=== PATIENT | male | born 1980 | race Caucasian/White ===

== ENCOUNTER 2016-11-20 15:15 | Emergency (ER) | payer BC ==
[~2016-11-20] VITALS: Ht 188 cm; Wt 74.8 kg
[~2016-11-20 15:15] MED LIST: ACHD5005 PO; AMOX500C2 PO; CLIN-81 PO; HYDR-757 PO; TRAM50TA2 PO
--- NOTE | 2016-11-20 16:26 | Diagnostic Imaging Report ---
INDICATION: Left wrist injury with pain after fall four days ago. DISCUSSION: Three views of the left wrist were obtained, no comparison. No acute fracture, dislocation, or other osseous abnormality identified. No significant degenerative disease. Alignment is anatomic. Soft tissues are unremarkable. IMPRESSION: 1. Negative left wrist. Dictated by: Dictated on workstation # [id number]
--- NOTE | 2016-11-20 16:32 | ED Upper Extremity ---
General Chief Complaint: Upper Extremity Stated Complaint: L WRIST INJ Nursing Triage Note: PT CO OF L WRIST PAIN Nursing Sepsis Screen: No Definite Risk History of Present Illness Time seen by provider: 15:10 Initial Comments Evaluation for left wrist pain. The patient reports on 11/17/16 he was hiking when he lost his footing, he fell backward on an outstretched left arm and extended wrist. He had some pain in the left wrist but he was able to continue with normal activities and minimal restrictions. He is right-hand dominant Onset: other (3 days ago) Severity: mild Pain/Injury Location: left wrist Method of Injury: fell Modifying Factors: Improves With Rest Associated Symptoms: he has been alternating between Tylenol and ibuprofen and feels this pain i Allergies and Home Medications Allergies Coded Allergies: NKANo Known Allergies (Unverified Allergy, Mild, 09/18/08) Constitutional: no symptoms reported, see HPI EENTM: no symptoms reported, see HPI Respiratory: no symptoms reported, see HPI Cardiovascular: no symptoms reported, see HPI Gastrointestinal: no symptoms reported, see HPI Genitourinary: no symptoms reported, see HPI Musculoskeletal: see HPI, joint pain (left wrist and forearm), joint swelling Skin: no symptoms reported, see HPI Psychiatric/Neurological: No Symptoms Reported, See HPI All Other Systems Reviewed Negative Unless Noted: Yes Past Axrmegw-Gbsvax-Raqihm Hx Patient Social History Alcohol Use: Regular Use Recreational Drug Use: No Smoking Status: Current Everyday Smoker Type Used: Cigarettes Recent Foreign Travel: No Contact w/Someone Who Travel: No Recent Infectious Disease Expo: No Immunizations Up To Date Tetanus Booster (TDap): More than 5yrs Surgeries HX Surgeries: No Respiratory Hx Respiratory Disorders: No Cardiovascular Hx Cardiac Disorders: No Neurological Hx Neurological Disorders: No Reproductive System Hx Reproductive Disorders: No Genitourinary Hx Genitourinary Disorders: No Gastrointestinal Hx Gastrointestinal Disorders: No Musculoskeletal Hx Musculoskeletal Disorders: No Endocrine Hx Endocrine Disorders: No HEENT HX ENT Disorders: No Cancer Hx Cancer: No Psychosocial Hx Psychiatric Problems: No Integumentary HX Skin/Integumentary Disorder: No Blood Transfusions Hx Blood Disorders: No Adverse Reaction to a Blood Tr: No Reviewed Nursing Assessment Reviewed/Agree w Nursing PMH: Yes Family Medical History Family Medial History: Patient reports no known family medical history. Physical Exam Vital Signs Vital Sign - Last 12Hours 11/20/16 15:55 Temp 97.4 Pulse 82 Resp 18 B/P (MAP) 163/96 Pulse Ox 97 Capillary Refill : Less Than 3 Seconds General Appearance: WD/WN, no apparent distress Cardiovascular: normal peripheral pulses, regular rate, rhythm, no murmur Respiratory: chest non-tender, lungs clear, normal breath sounds, no respiratory distress Wrist: Yes bone tenderness (left radius and ulna distally), Yes limited ROM ( left wrist secondary to pain), Yes soft tissue tenderness, Yes swelling Hand: normal inspection, non-tender, no evidence of injury, normal ROM, Left Neurologic/Psychiatric: no motor/sensory deficits, alert, normal mood/affect, oriented x 3 Skin: normal color, warm/dry Progress/Results/Core Measures Results/Orders My Orders Orders - MELINDA ZULUAGA Wrist, Left, 3 Views Or More (11/20/16 15:19) Vital Signs/I&O Vital Sign - Last 12Hours 11/20/16 11/20/16 15:55 16:38 Temp 97.4 Pulse 82 82 Resp 18 18 B/P (MAP) 163/96 Pulse Ox 97 97 Blood Pressure Mean: 118 Progress Note : Time: 15:10 Progress Note initial evaluation completed, discussed plan to x-ray the left wrist and reevaluate after that 1530 x-ray negative for fracture, dislocation, acute injury. 3 inch Felipe wrap and wrist splint applied. Diagnostic Imaging Diagonstic Imaging: Xray Plain Films/CT/US/NM/MRI: other (left wrist) Comments NAME: PAIGE MURPHY [facility] REC#: [id number] PT STATUS: REG ER : 1980 PHYSICIAN: MELINDA ZULUAGA ADMIT DATE: 11/20/16/ER Draft Date of Exam:11/20/16 WRIST, LEFT, 3 VIEWS OR MORE INDICATION: Left wrist injury with pain after fall four days ago. DISCUSSION: Three views of the left wrist were obtained, no comparison. No acute fracture, dislocation, or other osseous abnormality identified. No significant degenerative disease. Alignment is anatomic. Soft tissues are unremarkable. IMPRESSION: 1. Negative left wrist. Dictated on workstation # [id number] Dict: 11/20/16 1619 Trans: 11/20/16 1624 [facility] [phone] Interpreted by: NAOMY CHAUDHARI MD Electronically signed by Reviewed: Reviewed by Me Departure Impression Impression: Primary Impression: Left wrist sprain Qualified Codes: S63.502A - Unspecified sprain of left wrist, initial encounter Disposition: HOME, SELF-CARE Condition: Improved Departure-Patient Inst. Decision time for Depature: 15:30 Referrals: NO,LOCAL PHYSICIAN (PCP/Family) Primary Care Physician Patient Instructions: Wrist Sprain (DC) Add. Discharge Instructions: Wear wrist splint at all times for 2-3 days, then wear as needed for activities. Ice to left wrist 20 minutes every 2 hours. Continue to alternate between Tylenol 650 mg and ibuprofen 600 mg every 4 hours. Follow[facility] at [facility] if continued symptoms in 1-2 weeks. Return to emergency department if left wrist pain increases, new injury, or new problems. All discharge instructions reviewed with patient and/or family. Voiced understanding. MELINDA ZULUAGA Nov 20, 2016 16:32
[2016-11-20 16:38] VITALS: BP 142/88
== END 2016-11-20 16:38 | disposition home or self-care (01) ==
LOC: EDUNIT# 15:15 → ER 15:16
DX: S63.502A Unspecified sprain of left wrist, initial encounter (principal); F17.210 Nicotine dependence, cigarettes, uncomplicated; W17.89XA Other fall from one level to another, initial encounter; Y93.01 Activity, walking, marching and hiking
CPT/HCPCS: 73110; 99282

== ENCOUNTER 2020-01-06 22:29 | Emergency (ER) | payer BC ==
[~2020-01-06] VITALS: Ht 190.5 cm; Wt 74.8 kg
[~2020-01-06 22:29] MED LIST changes: +HYDR-4226 PO; -HYDR-757 PO
[2020-01-07] MEDS ORDERED: ORPHENADRINE 60 MG/2 ML (NORFLEX) AMP (ED ONLY) IM ONE (00:30)
[2020-01-07] MEDS ORDERED: morphine INJ 10 MG/ML 1ML (SYR OR VIAL) IM STA (00:30)
--- NOTE | 2020-01-07 01:24 | ED Fall/Injury ---
General Chief Complaint: Trauma-Non Activation Stated Complaint: LEFT FOOT INJURY Nursing Triage Note: TO ED VIA POV AND USE OF OWN CRUTCHES THEN REQUESTED W/C TO ROOM 6. 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 C/O LEFT HEEL PAIN. DENIES HITTING BACK, TAILBONE, HEAD. Source: patient Exam Limitations: no limitations History of Present Illness Date Seen by Provider: Jan 06, 2020 Time Seen by Provider: 22:58 Initial Comments This 39-year-old gentleman presents to the emergency room with complaints of pain in the left foot and ankle after falling off a shed roof. He was working on the roof when he slipped and slid down it. He landed on his feet but had sudden pain in the left foot and ankle. He denies any other injury. He has no back pain. He has some cramping in his left thigh. Allergies and Home Medications Allergies Coded Allergies: NKANo Known Allergies (Unverified Allergy, Mild, 09/18/08) Home Medications Cyclobenzaprine HCl 10 Mg Tablet, 10 MG PO Q8H PRN for SPASMS Prescribed by: SOFY LEWIS on 01/07/20 0150 Oxycodone HCl/Acetaminophen 1 Each Tablet, 1 TAB PO Q4H PRN for PAIN-MODERATE (5-7) Prescribed by: SOFY LEWIS on 01/07/20 0150 Patient Home Medication List Home Medication List Reviewed: Yes Review of Systems Review of Systems Constitutional: no symptoms reported Eyes: No Symptoms Reported Ears, Nose, Mouth, Throat: no symptoms reported Respiratory: no symptoms reported Cardiovascular: no symptoms reported Gastrointestinal: no symptoms reported Genitourinary: no symptoms reported Musculoskeletal: see HPI Skin: no symptoms reported Psychiatric/Neurological: No Symptoms Reported Past Tqcxuoi-Kmhmas-Pldtrs Hx Past Med/Social Hx: Reviewed Nursing Past Med/Soc Hx Patient Social History Alcohol Use: Rarely Uses Number of Drinks Today: 6 Alcohol Beverage of Choice: Beer Recreational Drug Use: Yes Drug of Choice: MARIJUANA Smoking Status: Current Everyday Smoker Type Used: Cigarettes Recent Foreign Travel: No Contact w/Someone Who Travel: No Recent Infectious Disease Expo: No Recent Hopitalizations: No Physical Abuse: No Sexual Abuse: No Mistreated: No Fear: No Immunizations Up To Date Tetanus Booster (TDap): More than 5yrs Seasonal Allergies Seasonal Allergies: No Past Medical History Surgeries: No Respiratory: No Cardiac: No Neurological: No Reproductive Disorders: No Gastrointestinal: No Musculoskeletal: No Endocrine: No Cancer: No Psychosocial: No Integumentary: No Blood Disorders: No Adverse Reaction/Blood Tranf: No Family Medical History Patient reports no known family medical history. Physical Exam Vital Signs Vital Signs - First Documented 01/06/20 22:42 Temp 36.1 Pulse 117 Resp 16 B/P (MAP) 156/95 (115) Pulse Ox 99 O2 Delivery Room Air Capillary Refill : Less Than 3 Seconds Height, Weight, BMI Height: 6'2.00" Weight: 165lbs. oz. 74.970841oh; 20.00 BMI Method:Stated General Appearance: WD/WN, mild distress HEENT: PERRL/EOMI, normal ENT inspection Neck: normal inspection Cardiovascular: regular rate, rhythm, no edema, no murmur Respiratory: lungs clear, normal breath sounds, no respiratory distress Gastrointestinal: non tender, soft Extremities: other (swelling and tenderness about the left ankle and heel. Distal exam unremarkable with normal sensation and capillary refill in the toes. 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 as tested, no motor/sensory deficits, alert, normal mood/affect, oriented x 3 Skin: normal color, warm/dry Nestor Coma Score Best Eye Response: (4) Open Spontaneously Best Verbal Response: (5) Oriented Best Motor Response: (6) Obeys Commands [place] Total: 15 Progress/Results/Core Measures Results/Orders My Orders Orders - SOFY JONES MD Foot, Left, 3 Views (01/06/20 23:06) Ankle, Left, 3 Views (01/06/20 23:06) Ct Extremity Lower Left Wo (01/06/20 23:38) Morphine Injection (Morphine Injection (01/07/20 00:30) Orphenadrine Inj (Ed Only) (Norflex Inje (01/07/20 00:30) Femur, Left, 2 Views (01/07/20 00:39) Tibia/Fibula, Left, 2 Views (01/07/20 00:39) Steplite (01/07/20 00:41) Rx-Oxycodone/Apap 5-325 Mg (Rx-Percocet (01/07/20 01:30) Medications Given in ED Current Medications Medications Dose Ordered Sig/Harshil Route Start Time Stop Time Status Last Admin Dose Admin Orphenadrine Citrate 60 mg ONCE ONCE IM 01/07/20 00:30 01/07/20 00:32 DC 01/07/20 00:49 60 MG Oxycodone/ Acetaminophen 1 ea Q4H PRN PO 01/07/20 01:30 01/07/20 02:08 DC 01/07/20 01:26 1 EA Vital Signs/I&O 01/06/20 01/07/20 01/07/20 22:42 00:50 02:00 Temp 36.1 36.1 36.1 Pulse 117 89 Resp 16 16 B/P (MAP) 156/95 (115) 138/89 (115) Pulse Ox 99 99 O2 Delivery Room Air Room Air Blood Pressure Mean: 115 Progress Progress Note : Progress Note Patient was initially treated with morphine 2 mg IM and Norflex 60 mg IM. X- rays suggested calcaneal fracture. CT was ordered to follow. This confirmed a comminuted fracture. Patient was placed in a boot and oxycodone take-home packet was dispensed. I discussed the case with Dr. Short who advised that I seek follow-up with a foot and ankle specialist elsewhere. Then discussed the case with Dr. Ozuna, orthopedist supervisor quality control for [facility]. He recommended patient follow-up with Dr. Delacruz. Patient was fitted with a boot. He had his own crutches with him. Diagnostic Imaging Diagonstic Imaging: Xray Plain Films/CT/US/NM/MRI: ankle (and foot) Comments X-rays of the left ankle and foot suggest fracture through the calcaneus. CT to follow. Diagonstic Imaging: Xray Plain Films/CT/US/NM/MRI: femur, leg Comments Tib-fib and femur x-rays viewed by me. Report not yet available. No acute fractures or dislocations appreciated. Diagonstic Imaging: CT Plain Films/CT/US/NM/MRI: other (left foot) Comments CT of the left foot viewed by me and [employer] report reviewed. There is a comminuted fracture of the calcaneus with mild displacement and extension into the subtalar joint. Departure Impression Primary Impression: Left calcaneal fracture Qualified Codes: S92.062A - Displaced intraarticular fracture of left calcaneus, initial encounter for closed fracture Additional Impression: Fall from roof Qualified Codes: W13.2XXA - Fall from, out of or through roof, initial encou nter Disposition: HOME, SELF-CARE Condition: Stable Departure-Patient Inst. Decision time for Depature: 01:20 Referrals: NAOMY DELACRUZ DPM NO,LOCAL PHYSICIAN (PCP) Primary Care Physician Patient Instructions: Foot Fracture (DC) Add. Discharge Instructions: Use your Percocet as prescribed. You may wish to take a stool softener such as Colace with the Percocet to prevent constipation. Icing in 20 minute intervals may be helpful in reducing pain and swelling. Elevate your foot on a soft surface is much as possible. We've your foot in the boot as much as you are able. When at rest, you may remove your foot from the boot and rested on a soft surface. Do not bear weight on your foot or leg. Use crutches to ambulate. Contact Dr. Delacruz's office first thing tomorrow morning. Return to care if you have any further problems or concerns. All discharge instructions reviewed with patient and/or family. Voiced understanding. Scripts Cyclobenzaprine HCl (Cyclobenzaprine HCl) 10 Mg Tablet 10 MG PO Q8H PRN for SPASMS, #15 TAB 0 Refills Prov: SOFY JONES MD 01/07/20 Oxycodone HCl/Acetaminophen (Percocet 5-325 mg Tablet) 1 Each Tablet 1 TAB PO Q4H PRN for PAIN-MODERATE (5-7) MDD 6 TABS, #30 TAB Prov: SOFY JONES MD 01/07/20 Copy Copies To 1: NAOMY DELACRUZ DPM, JOSHUA T MD Jan 07, 2020 01:23
[2020-01-07] MEDS ORDERED: RX-OXYCODONE/APAP 5-325 MG #4 TAB PK PO PRN (01:30)
[2020-01-07] MEDS ORDERED: OXYC1TAB87 PO ×2 (01:32→01:49)
[2020-01-07] MEDS ORDERED: CYCL10TA9 PO (01:50)
[2020-01-07 02:00] VITALS: BP 138/89
--- NOTE | 2020-01-07 07:08 | Diagnostic Imaging Report ---
INDICATION: Suspected calcaneal fracture. Left foot and ankle pain after fall. FINDINGS: 3 views of the left ankle demonstrate a left calcaneal fracture. No dislocation or foreign body is present. IMPRESSION: There is a left calcaneal fracture. Dictated by: Dictated on workstation # [id number]
--- NOTE | 2020-01-07 07:15 | Diagnostic Imaging Report ---
INDICATION: Left foot and ankle pain after a fall. FINDINGS: 3 views of the left foot demonstrate a fracture of the calcaneus. IMPRESSION: There is a left calcaneal fracture. Dictated by: Dictated on workstation # [id number]
--- NOTE | 2020-01-07 07:42 | Diagnostic Imaging Report ---
INDICATION: Left leg pain FINDINGS: 2 views of the left tibia and fibula does not include the ankle. The exam demonstrates normal ossification. No fractures are present. IMPRESSION: Negative exam. Dictated by: Dictated on workstation # [id number]
--- NOTE | 2020-01-07 07:55 | Diagnostic Imaging Report ---
INDICATION: Left leg pain FINDINGS: 2 views of the left femur demonstrate no fracture or dislocation. IMPRESSION: Negative left femur. Dictated by: Dictated on workstation # [id number]
--- NOTE | 2020-01-07 07:57 | Diagnostic Imaging Report ---
PROCEDURE: CT left lower extremity without contrast. TECHNIQUE: Multiple contiguous axial images were obtained through the left lower extremity without the use of intravenous contrast. Sagittal and coronal reformations were then performed. Auto Exposure Controls were utilized during the CT exam to meet ALARA standards for radiation dose reduction. INDICATION: Fall with pain. FINDINGS: There are comminuted fractures of the calcaneus with involvement of the posterior greater than anterior subtalar joints and loss of Boehler's angle. Component of the fracture approaches the calcaneal cuboid joint without its offset. The talus itself showed no appreciable fracture. The distal tibia and fibula intact. The plafond and talar dome intact. No other fracture identified. IMPRESSION: A comminuted intra-articular calcaneal fractures with loss of Boehler's angle, the remaining bony structures however appeared intact. Dictated by: Dictated on workstation # [id number]
== END 2020-01-07 02:00 | disposition home or self-care (01) ==
LOC: EDUNIT# 22:29 → ER 22:31
DX: S92.062A Displaced intraarticular fracture of left calcaneus, initial encounter for closed fracture (principal); F17.210 Nicotine dependence, cigarettes, uncomplicated; R40.2142 Coma scale, eyes open, spontaneous, at arrival to emergency department; R40.2252 Coma scale, best verbal response, oriented, at arrival to emergency department; R40.2362 Coma scale, best motor response, obeys commands, at arrival to emergency department; W13.2XXA Fall from, out of or through roof, initial encounter
CPT/HCPCS: 73552; 73590; 73610; 73630; 73700; 99283; L2114

== ENCOUNTER 2020-01-17 07:30 | Emergency (ER) | payer BC ==
[~2020-01-17] VITALS: Ht 190 cm; Wt 74.8 kg
[~2020-01-17 07:30] MED LIST changes: +CYCL10TA9 PO; +OXYC1TAB87 PO
[2020-01-17] MEDS ORDERED: oxyCODONE/APAP 5/325MG (PERCOCET 5) TABLET ONE (07:41)
[2020-01-17] MEDS ORDERED: oxyCODONE/APAP 10/325MG (PERCOCET 10) TABLET PO ONE (07:45)
[2020-01-17] MEDS ORDERED: oxyCODONE/APAP 5/325MG (PERCOCET 5) TABLET PO ONE (07:45)
--- NOTE | 2020-01-17 08:01 | ED Lower Extremity ---
General Chief Complaint: Lower Extremity Stated Complaint: POST OP FOOT PAIN Nursing Triage Note: PT PRESENTS TO ED WITH COMPLAINTS OF L FOOT PAIN AFTER SX YESTERDAY. PT REPORTS HIS INSURANCE WOULDNT COVER THE PAIN MEDICATION HIS SURGEON WROTE FOR, SO HE HAS NOT TAKEN ANYTHING FOR PAIN SINCE THE SX. Nursing Sepsis Screen: No Definite Risk Source: patient, family Exam Limitations: no limitations (KRZYSZTOF LOPEZ STUDENT) History of Present Illness Date Seen by Provider: Jan 17, 2020 Time Seen by Provider: 07:45 Initial Comments Ramon Iyer is a 39 year old male seen today due to L foot pain. He reports having a calcaneal fracture repair at [facility] yesterday at 10:[address] Moore. The pain began last night around midnight. He reports he was not able to have his pain medication filled at his pharmacy, believes the medication is percocet 5/325. He has not taken any other pain medications because he is concerned about taking them with xarelto, which he was going to start today but did not due to nausea caused by his pain. He describes his pain as a crushing sensation at his calcaneus. His leg is wrapped, which he was instructed not to remove until follow up with [facility]. Denies any fevers, chills, CP, SOB, vomiting. Onset: yesterday (around midnight last night) Severity: mild Pain/Injury Location: left foot Method of Injury: fell (KRZYSZTOF LOPEZ STUDENT) Allergies and Home Medications Allergies Coded Allergies: NKANo Known Allergies (Unverified Allergy, Mild, 09/18/08) Home Medications Cyclobenzaprine HCl 10 Mg Tablet, 10 MG PO Q8H PRN for SPASMS Prescribed by: SOFY LEWIS on 01/07/20149 Oxycodone HCl/Acetaminophen 1 Each Tablet, 1 TAB PO Q4H PRN for PAIN-MODERATE (5-7) Prescribed by: SOFY LEWIS on 01/07/20149 Patient Home Medication List Home Medication List Reviewed: Yes (DARIANA TOPETE) Review of Systems Constitutional: No chills, No fever Respiratory: No cough, No short of breath Cardiovascular: No chest pain Gastrointestinal: nausea; No vomiting Musculoskeletal: joint swelling (reports significant L ankle swelling without wrap) (JOHN,KRZYSZTOF MED STUDENT) All Other Systems Reviewed Negative Unless Noted: Yes (DARIANA TOPETE) Past Hoqmrfd-Zpllnt-Nphplf Hx Patient Social History Alcohol Use: Occasionally Uses Number of Drinks Today: AA Alcohol Beverage of Choice: Beer Recreational Drug Use: No Drug of Choice: MARIJUANA Smoking Status: Current Everyday Smoker Type Used: Cigarettes Recent Foreign Travel: No Contact w/Someone Who Travel: No Recent Infectious Disease Expo: No Recent Hopitalizations: No Physical Abuse: No Sexual Abuse: No Mistreated: No Fear: No (KRZYSZTOF LOPEZ) Alcohol Use: Past History Recreational Drug Use: Yes (DARIANA TOPETE) Immunizations Up To Date Tetanus Booster (TDap): More than 5yrs (KRZYSZTOF LOPEZ) Seasonal Allergies Seasonal Allergies: No (KRZYSZTOF LOPEZ) Past Medical History Surgeries: Yes (dental) Orthopedic Respiratory: No Cardiac: No Neurological: No Reproductive Disorders: No Gastrointestinal: No Musculoskeletal: No Endocrine: No Cancer: No Psychosocial: No Integumentary: No Blood Disorders: No Adverse Reaction/Blood Tranf: No (KRZYSZTOF LOPEZ) Family Medical History Patient reports no known family medical history. Physical Exam Vital Signs Vital Signs - First Documented 01/17/20 07:49 Temp 37.0 Pulse 83 Resp 18 B/P (MAP) 133/88 (103) Pulse Ox 100 (DARIANA TOPETE) Vital Signs Capillary Refill : Less Than 3 Seconds (KRZYSZTOF LOPEZ) Height, Weight, BMI Height: 6'2.00" Weight: 165lbs. oz. 74.625619xx; 20.00 BMI Method:Stated General Appearance: WD/WN, mild distress HEENT: PERRL/EOMI Cardiovascular: regular rate, rhythm, no edema, no gallop, no JVD, no murmur Respiratory: chest non-tender, lungs clear, normal breath sounds, no respiratory distress, no accessory muscle use Hips: bilateral hip non-tender, bilateral hip normal inspection, bilateral hip no evidence of injury Legs: bilateral leg non-tender, bilateral leg normal inspection, bilateral leg no evidence of injury Knees: bilateral knee non-tender, bilateral knee normal inspection, bilateral knee no evidence of injury Ankles: bilateral ankle non-tender, bilateral ankle normal inspection, bilateral ankle no evidence of injury Feet: bilateral foot non-tender, bilateral foot normal inspection, bilateral foot no evidence of injury; left foot pain Neurologic/Psychiatric: alert, normal mood/affect, oriented x 3 Skin: normal color, warm/dry (KRZYSZTOF LOPEZ MED STUDENT) Neck: full range of motion, normal inspection (DARIANA TOPETE) Progress/Results/Core Measures Results/Orders My Orders Orders - DARIANA TOPETE Oxycodone/Acet 10/325mg Tablet (Percocet (01/17/20 07:45) Oxycodone/Apap 5/325mg Tablet (Percocet (01/17/20 07:41) Oxycodone/Apap 5/325mg Tablet (Percocet (01/17/20 07:45) Ketorolac Injection (Toradol Injection) (01/17/20 08:15) Ketorolac Injection (Toradol Injection) (01/17/20 08:05) (DARIANA TOPETE) Medications Given in ED Current Medications Medications Dose Ordered Sig/Harshil Route Start Time Stop Time Status Last Admin Dose Admin Ketorolac Tromethamine 60 mg ONCE ONCE IM 01/17/20 08:15 01/17/20 08:16 DC 01/17/20 08:09 60 MG Oxycodone/ Acetaminophen 2 tab ONCE ONCE PO 01/17/20 07:45 01/17/20 07:46 DC 01/17/20 07:56 2 TAB (DARIANA TOPETE) Vital Signs/I&O 01/17/20 07:49 Temp 37.0 Pulse 83 Resp 18 B/P (MAP) 133/88 (103) Pulse Ox 100 (DARIANA TOPETE) Blood Pressure Mean: 103 Progress Progress Note : Progress Note Dr. Topete contacted Dr. Moore, NSAIDs fine to take for his pain. Patient was given percocet 325, told he could pay for percocet at pharmacy and provided with GoodRx card, and told to keep followup with Dr. Moore in one week. (KRZYSZTOF LOPEZ MED STUDENT) Progress Note : Time: 08:16 Progress Note Patient was given 10 mg Percocet and 60 mg IM Toradol. Encourage to follow-up with Dr. Moore. Encouraged picking table worker the Percocet from the pharmacy. I attest that I saw this patient alongside the medical student and agree with his documented history, physical exam and review of systems except as otherwise noted. (DARIANA TOPETE) Departure Impression Primary Impression: Post-operative pain Disposition: 01 HOME, SELF-CARE Condition: Stable Departure-Patient Inst. Decision time for Depature: 08:18 (DARIANA TOPETE) Referrals: NO,LOCAL PHYSICIAN (PCP/Family) Primary Care Physician Patient Instructions: Acute Pain, Adult (DC) Add. Discharge Instructions: Keep the foot elevated above the level of your heart and use ice packs to help with pain. Percocet as prescribed. Ibuprofen 800 mg every 8 hours or naproxen 2 tablets twice a day. Keep your follow-up appointment in 1 week with the surgeon. All discharge instructions reviewed with patient and/or family. Voiced understanding. KRZYSZTOF LOPEZ MED STUDENT Jan 17, 2020 08:01 DARIANA TOPETE Jan 17, 2020 08:19
[2020-01-17] MEDS ORDERED: KETOROLAC 60 MG/2 ML VIAL ONE (08:05)
[2020-01-17] MEDS ORDERED: KETOROLAC 60 MG/2 ML VIAL IM ONE (08:15)
[2020-01-17 08:23] VITALS: BP 123/70
== END 2020-01-17 08:23 | disposition home or self-care (01) ==
LOC: EDUNIT# 07:30 → ER 07:32
DX: G89.18 Other acute postprocedural pain (principal); M79.672 Pain in left foot; F17.210 Nicotine dependence, cigarettes, uncomplicated; Z87.81 Personal history of (healed) traumatic fracture
CPT/HCPCS: 96372; 99284